=== PATIENT | male | born 1960 | race Caucasian/White ===

== ENCOUNTER 2016-07-15 12:30 | Emergency (ER) | payer OTHER ==
[~2016-07-15] VITALS: Ht 182.9 cm; Wt 80.1 kg
[~2016-07-15 12:30] MED LIST: ALBUAER2 PO; ATOR-22 PO; LORA10CA2 PO; PRT40 PO; ZTHM250 PO
[2016-07-15 12:43] VITALS: TEMP 36.9; O2SAT 99; Ht 182.9 cm; Wt 80.1 kg
--- NOTE | 2016-07-15 12:59 | EMERGENCY ROOM VISIT NOTE ---
History Report prepared by Constance: Ruth Vang Under the Supervision of: Dr. Tyree Powell D.O. 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 He received 324 mg of aspirin en route. He was just walking around when the pain started. He had to sit down when the pain started. He took a nitro which resolved his symptoms. The chest pain lasted for 1 minute. He reports dizziness and nausea. He denies any SOB at the time. He denies any swelling or pain in the legs. He has a history of cardiac problems. He has had a failed triple bypass and has [address] He has had a heart catheterization and stress test in the past. He has a history of COPD and experiences SOB with exertion normally. He last took nitro 2-3 months ago. He has a history of back surgery. Source of History: patient Onset: COMMUNICATIONS CLERK Position: chest Quality: other (pain) Timing: other (episodic) Modifying Factors (Relieving): other (nitro) Associated Symptoms: + nausea, No SOB Note: Pt reports dizziness. Pt denies swelling or pain in legs. Review of Systems See HPI for pertinent positives & negatives. A total of 10 systems reviewed and were otherwise negative. Past Medical & Surgical Medical Problems: (1) COPD (chronic obstructive pulmonary disease) Surgical Problems: (1) S/P coronary artery stent placement Family History No pertinent family history stated. Social History Smoking Status: Current Every Day Smoker Marital Status: single Housing Status: other (senior care) Current/Historical Medications Scheduled Albuterol Hfa (Ventolin Hfa), 2 PUFFS INH Q6H Aspirin (Aspirin Ec), 81 MG PO DAILY Atorvastatin (Lipitor), 80 MG PO DAILY Carvedilol (Coreg), 12.5 MG PO DAILY Cetirizine (Zyrtec), 10 MG PO DAILY Meloxicam (Mobic), 15 MG PO DAILY Salmeterol Xinafoate (Serevent Diskus), 1 PUFF INH BID Scheduled PRN Nitroglycerin (Nitrostat), 0.4 MG UT UD PRN for Chest Pain Allergies Coded Allergies: Salmeterol (Verified Allergy, Severe, ANAPHYLAXIS, 04/24/14) PT STATES HIS THROAT SWELLS BEE STING (Verified Allergy, Unknown, swelling, 04/23/14) Uncoded Allergies: COPD MED (Allergy, Unknown, THROAT SWELLING, 04/23/14) Physical Exam Vital Signs Date Time Temp Pulse Resp B/P Pulse Ox O2 Delivery O2 Flow Rate FiO2 07/15/16 14:30 72 18 122/71 97 Room Air 07/15/16 13:15 74 07/15/16 12:43 99 Room Air 07/15/16 12:43 97 Room Air 07/15/16 12:43 36.9 75 20 135/93 99 Room Air Physical Exam GENERAL: Patient is awake, alert, and in no acute distress. Patient is resting comfortably and showing no signs of anxiety EYES: The conjunctivae are clear. The pupils are round and reactive. EARS, NOSE, MOUTH AND THROAT: The nose is without any evidence of any deformity. Mucous membranes are moist tongue is midline NECK: The neck is nontender and supple. RESPIRATORY: Normal respiratory effort is noted there is no evidence of wheezing rhonchi or rales CARDIOVASCULAR: Regular rate and rhythm noted there no murmurs rubs or gallops normal S1 normal S2 GASTROINTESTINAL: The abdomen is soft. Bowel sounds are present in all quadrants. Abdomen is nontender MUSCULOSKELETAL/EXTREMITIES: There is no evidence of gross deformity full range of motion is noted in the hips and shoulders SKIN: There is no obvious evidence of any rash. There are no petechiae, pallor or cyanosis noted. NEUROLOGIC: Patient is awake alert and oriented x3. Medical Decision & Procedures ER Provider Diagnostic Interpretation: X-ray results as stated below per interpretation by me and the radiologist. CHEST ONE VIEW PORTABLE CLINICAL HISTORY: CHEST PAIN dyspnea COMPARISON STUDY: 05/03/2014 FINDINGS: Prior median sternotomy. Diaphragms smooth. Lungs are clear. IMPRESSION: No acute process. Electronically signed by: Dick Perez M.D. 07/15/2016 1:23 PM Dictated Date/Time: 07/15/2016 1:23 PM Laboratory Results 07/15/16 12:55 Red Blood Count 4.72, Mean Corpuscular Volume 93.6, Mean Corpuscular Hemoglobin 31.6, Mean Corpuscular Hemoglobin Concent 33.7, Mean Platelet Volume 12.0, Neutrophils (%) (Auto) 60.9, Lymphocytes (%) (Auto) 24.3, Monocytes (%) (Auto) 10.2, Eosinophils (%) (Auto) 4.1, Basophils (%) (Auto) 0.4, Neutrophils # (Auto ) 4.79, Lymphocytes # (Auto) 1.91, Monocytes # (Auto) 0.80, Eosinophils # (Auto ) 0.32, Basophils # (Auto) 0.03 07/15/16 12:55 Test 07/15/16 12:55 07/15/16 12:57 White Blood Count 7.86 K/uL (4.8-10.8) Red Blood Count 4.72 M/uL (4.7-6.1) Hemoglobin 14.9 g/dL (14.0-18.0) Hematocrit 44.2 % (42-52) Mean Corpuscular Volume 93.6 fL (80-100) Mean Corpuscular Hemoglobin 31.6 pg (25-34) Mean Corpuscular Hemoglobin Concent 33.7 g/dl (32-36) Platelet Count 172 K/uL (130-400) Mean Platelet Volume 12.0 fL (7.4-10.4) Neutrophils (%) (Auto) 60.9 % Lymphocytes (%) (Auto) 24.3 % Monocytes (%) (Auto) 10.2 % Eosinophils (%) (Auto) 4.1 % Basophils (%) (Auto) 0.4 % Neutrophils # (Auto) 4.79 K/uL (1.4-6.5) Lymphocytes # (Auto) 1.91 K/uL (1.2-3.4) Monocytes # (Auto) 0.80 K/uL (0.11-0.59) Eosinophils # (Auto) 0.32 K/uL (0-0.5) Basophils # (Auto) 0.03 K/uL (0-0.2) RDW Standard Deviation 45.1 fL (36.4-46.3) RDW Coefficient of Variation 13.2 % (11.5-14.5) Immature Granulocyte % (Auto) 0.1 % Immature Granulocyte # (Auto) 0.01 K/uL (0.00-0.02) Prothrombin Time 10.5 SECONDS (9.0-12.0) Prothromb Time International Ratio 1.0 (0.9-1.1) Activated Partial Thromboplast Time 24.7 SECONDS (21.0-31.0) Partial Thromboplastin Ratio 1.0 Anion Gap 5.0 mmol/L (3-11) Est Creatinine Clear Calc Drug Dose 94.6 ml/min Estimated GFR () 100.9 Estimated GFR (Non- 87.1 BUN/Creatinine Ratio 20.2 (10-20) Calcium Level 9.1 mg/dl (8.5-10.1) Total Bilirubin 0.6 mg/dl (0.2-1) Direct Bilirubin 0.2 mg/dl (0-0.2) Aspartate Amino Transf (AST/SGOT) 18 U/L (15-37) Alanine Aminotransferase (ALT/SGPT) 40 U/L (12-78) Alkaline Phosphatase 55 U/L (45-117) Total Creatine Kinase 96 U/L (39-308) Creatine Kinase MB 0.7 ng/ml (0.5-3.6) Creatine Kinase MB Ratio 0.7 (0-3.0) Total Protein 7.1 gm/dl (6.4-8.2) Albumin 3.9 gm/dl (3.4-5.0) Lipase 192 U/L (73-393) Bedside Troponin I 0.000 ng/ml (0-0.045) Laboratory results per my review. ECG Indication: chest pain Rate (beats per minute): 73 Rhythm: normal sinus Findings: Q waves (Inferior), no ectopy, other (diffuse T-wave flattening noted ) Comparison ECG Date: 24-Apr-2014 Change: no significant change ED Course 1233: The patient was evaluated in room C7. A complete history and physical examination were performed. 1445: Upon reevaluation, the patient is resting comfortably. I discussed the results and treatment plan with him. He verbalized agreement of the treatment plan. He was discharged home. Medical Decision Prior records/ancillary studies reviewed. Triage Nursing notes reviewed. The patient's history was concerning for chest pain. Differential diagnosis: Etiologies such as cardiac ischemia, aortic dissection, pulmonary embolism, pneumonia, pneumothorax, musculoskeletal, infections, pericarditis, myocarditis , esophageal rupture, gastrointestinal, as well as others were entertained. The patient is a 55-year-old male who presented to the emergency department for evaluation of chest pain. The patient describes sharp short episode of chest pain. The patient has a history of coronary artery disease and was told at one time that he is likely on a medical management only and no further intervention could be done. The patient has had a history of bypass as well. The patient did not have any pain at this time. He is given aspirin prior to arrival. I discussed the patient's laboratory and radiographic studies with him. I also discussed the limitations of the emergency department with chest pain with him. The patient's EKG does not show any change previous. His cardiac biomarkers were nonelevated. He was encouraged to rest and avoid any strenuous activity. Is also encouraged to follow-up with the doctor at the senior care seems possible. He was also encouraged to return to the emergency department immediately if symptoms change worsen or the need arises. Impression Primary Impression: Chest pain Scribe Attestation The scribe's documentation has been prepared under my direction and personally reviewed by me in its entirety. I confirm that the note above accurately reflects all work, treatment, procedures, and medical decision making performed by me. Departure Information Dispostion Home / Self-Care Referrals No Doctor, Assigned (PCP) [facility] HOME CARE DOCUMENTATION FORM, IMPORTANT VISIT INFORMATION Patient Instructions ED Chest Pain Atypical Unkn Cause, My [facility] Additional Instructions Continue all medications as prescribed. Continue taking the nitroglycerin as directed for pain. I would recommend rechecking the troponin cardiac blood tests over the next 24 hours at regular intervals to see if there is a change or an elevation in the troponin. No strenuous activity until your cleared by the physician. Problem Qualifiers Primary Impression: Chest pain Chest pain type: unspecified Qualified Codes: R07.9 - Chest pain, unspecified
[2016-07-15 13:13] LABS: BASO % 0.4 %; BASO ABS # 0.03 K/uL (0-0.2); COMPLETE YES; EOS % 4.1 %; HEMATOCRIT 44.2 % (42-52); IG% 0.1 %; LYMPH % 24.3 %; LYMPH ABS # 1.91 K/uL (1.2-3.4); MEAN CELL VOLUME 93.6 fL (80-100); MEAN CORPUSCULAR HEMOGLOBIN 31.6 pg (25-34); MEAN CORPUSCULAR HGB CONC 33.7 g/dl (32-36); MONO % 10.2 %; NEUT % 60.9 %; PLATELET COUNT 172 K/uL (130-400); RED BLOOD COUNT 4.72 M/uL (4.7-6.1); WHITE BLOOD COUNT 7.86 K/uL (4.8-10.8)
[2016-07-15 13:21] LABS: PROTHROMBIN TIME (PATIENT) 10.5 SECONDS (9.0-12.0)
[2016-07-15] MEDS ORDERED: MELO7.5T5 PO (13:23)
[2016-07-15] MEDS ORDERED: VNTHFA/IN INH (13:23)
[2016-07-15] MEDS ORDERED: CETI10TA84 PO (13:23)
[2016-07-15] MEDS ORDERED: ATOR-26 PO (13:23)
--- NOTE | 2016-07-15 13:25 | DIAGNOSTIC IMAGING REPORT ---
CHEST ONE VIEW PORTABLE CLINICAL HISTORY: CHEST PAIN dyspnea COMPARISON STUDY: 05/03/2014 FINDINGS: Prior median sternotomy. Diaphragms smooth. Lungs are clear. IMPRESSION: No acute process. Electronically signed by: Dick Perez M.D. 07/15/2016 1:23 PM Dictated Date/Time: 07/15/2016 1:23 PM
[2016-07-15 13:30] LABS: BUN/CREATININE RATIO 20.2 (10-20); CALCIUM 9.1 mg/dl (8.5-10.1); CREATININE 0.98 mg/dl (0.60-1.40); POTASSIUM 4.1 mmol/L (3.5-5.1)
[2016-07-15 13:37] LABS: CKMB/CK RATIO 0.7 (0-3.0)
[2016-07-15 15:17] VITALS: BP 119/84; PULSE 74; O2SAT 97
[2016-07-15] MEDS ORDERED: ASPI81TA28 PO (23:17)
[2016-07-15] MEDS ORDERED: CARV12.52 PO (23:17)
[2016-07-15] MEDS ORDERED: NTRGSL/4 UT (23:21)
[2016-07-15] MEDS ORDERED: SRVDIN60 INH (23:21)
== END 2016-07-15 15:19 | disposition home or self-care (01) ==
LOC: EDBD 12:30 → C.EDC 12:31
DX: R07.9 Chest pain, unspecified (principal); J44.9 Chronic obstructive pulmonary disease, unspecified; F17.210 Nicotine dependence, cigarettes, uncomplicated; Z79.82 Long term (current) use of aspirin; Z79.899 Other long term (current) drug therapy